=== PATIENT | female | born 1990 | race Native Hawaiian/Other Pacific Islander ===

== ENCOUNTER 2019-11-16 20:03 | Emergency (ER) | payer BC ==
[~2019-11-16] VITALS: Ht 157.5 cm; Wt 59.0 kg
[2019-11-16 21:08] VITALS: BP 102/58; TEMP 99.5
== END 2019-11-16 21:13 | disposition home or self-care (01) ==
LOC: ED 20:03
DX: T78.49XA Other allergy, initial encounter (principal)
CPT/HCPCS: 96360; 96375; 99284; J1100; J1200